=== PATIENT | female | born 1955 | race Hispanic/Latino ===

== ENCOUNTER 2017-11-06 16:33 | Emergency (ER) | payer OTHER ==
[~2017-11-06] VITALS: Ht 160 cm; Wt 95.7 kg
[2017-11-06] MEDS ORDERED: IPRATROPIUM BROMIDE 0.02% 2.5 ML NEB NEB STA (16:42)
[2017-11-06] MEDS ORDERED: ALBUTEROL SULF 0.083% NEB SOLN 3 ML NEB NEB STA (16:42)
[2017-11-06] MEDS ORDERED: BENZONATATE100 MG PO (16:56)
[2017-11-06] MEDS ORDERED: ATORVASTATIN CA20 MG PO (16:56)
[2017-11-06] MEDS ORDERED: LISINOPRIL2.5 MG PO (16:56)
[2017-11-06] MEDS ORDERED: GLIMEPIRIDE2 MG PO (16:56)
[2017-11-06] MEDS ORDERED: CINNAMON500 MG PO (16:56)
[2017-11-06] MEDS ORDERED: AZITHROMYCIN250 MG PO (16:56)
[2017-11-06 17:12] LABS: INFLUENZAE A&B ANTIGEN (RAPID) NEGATIVE (NEGATIVE); STREPTOCOCCUS GRP A ANTIGEN NEGATIVE (NEGATIVE)
--- NOTE | 2017-11-06 17:28 | Diagnostic Imaging Report ---
PROCEDURE: Frontal and lateral views of the chest. COMPARISON: None. INDICATIONS: COUGH FINDINGS: Lines/tubes: None. Lungs: The lungs are well inflated. Likely atelectatic changes in the left lower lung secondary to diaphragmatic elevation. There is no evidence of consolidation or pulmonary edema. Pleura: There is no pleural effusion or pneumothorax. Heart and mediastinum: Cardiac silhouette is unremarkable. Pulmonary vasculature is normal. 12.4 x 9.3 x 15.9 cm well-circumscribed lucency projecting in the left lower hemithorax likely represents the gastric bubble and superimposed portion of the splenic flexure Bones: No acute bony abnormality. Mild degenerative changes in the thoracic spine. IMPRESSION: 1. likely atelectatic changes in the left lower lung secondary to diaphragmatic elevation. 2. Large well-circumscribed lucency projecting in the left lower hemithorax likely represents the gastric bubble and superimposed portion of the splenic flexure due to diaphragmatic elevation. A diaphragmatic hernia is much less likely. CT chest may be obtained for further evaluation, if clinically indicated. Jose Torres M.D. Dictated by: Jose Torres M.D. on 11/06/2017 at 17:27 Electronically approved by: Jose Torres M.D. on 11/06/2017 at 17:27
--- NOTE | 2017-11-06 18:56 | Diagnostic Imaging Report ---
PROCEDURE: CT CHEST WITHOUT CONTRAST CT scan of the chest WITHOUT intravenous contrast, using standard protocol. TECHNIQUE: The chest was scanned utilizing a multidetector helical scanner from the apex to the level of the adrenal glands. No IV contrast was administered per physician's request. Coronal and sagittal multiplanar reformations were obtained. COMPARISON: Patients [facility], , CHEST 2 VIEWS, 11/06/2017, 16:57. INDICATIONS: RULE OUT PNEUMONIA, abnormal cxr FINDINGS: Lines/tubes: None. Lungs and Airways: Moderate atelectatic changes in the left lower lobe and to a lesser degree, lingula, secondary to large eventration of the left hemidiaphragm (series 3 per image 23). Mild atelectatic changes in the posterior right lower lobe secondary to eventration of the right hemidiaphragm (series 3 per image 35 and coronal image 93).. No consolidation, nodules, or masses. Airways are clear, without endobronchial lesions. Pleura: No effusion, or pneumothorax. Heart and mediastinum: The thyroid gland is normal. The heart and pericardium are within normal limits. Atherosclerotic calcification of the aortic valves. Lymph nodes: No mediastina, hilar, or axillary adenopathy. Abdomen: Limited views of the upper abdomen show no abnormality within the visualized liver, spleen, pancreas. The right adrenal gland is unremarkable. The left adrenal gland is not imaged. Bones: No aggressive lytic lesion. Soft tissues are grossly unremarkable. IMPRESSION: 1. moderate atelectatic changes in the left lower lobe and to a lesser degree, lingula secondary to large eventration of the left hemidiaphragm. 2. Mild atelectatic changes in the posterior right lower lobe secondary to eventration of the posterior right hemidiaphragm. 3. No consolidation or effusion. Jose Torres M.D. Dictated by: Jose Torres M.D. on 11/06/2017 at 18:55 Electronically approved by: Jose Torres M.D. on 11/06/2017 at 18:55
[2017-11-06] MEDS ORDERED: SODIUM CHLORIDE 0.9% 500ML 500 ML IV ONE (19:45)
[2017-11-06 20:14] LABS: BASOPHILS # (AUTO) 0.1 (0.0-0.1); BASOPHILS % 0.5 % (0.0-1.0); EOSINOPHILS # (AUTO) 0.4 (0.0-0.4); EOSINOPHILS % 2.8 % (0.0-6.0); HEMATOCRIT 41.2 % (34.2-44.1); HEMOGLOBIN 12.9 g/dL (12.0-16.0); LYMPHOCYTES # (AUTO) 2.7 (1.0-3.2); LYMPHOCYTES % 20.6 % (18.0-39.1); MEAN CORPUSCULAR HEMOGLOBIN 27.6 pg (28-32); MEAN CORPUSCULAR HGB CONC 31.3 g/dL (31-35); MONOCYTES # (AUTO) 0.7 (0.2-0.8); MONOCYTES % 5.7 % (4.4-11.3); NEUTROPHILS # (AUTO) 9.1 (2.1-6.9); NEUTROPHILS % 70.2 % (38.7-80.0); PLATELET COUNT 254 x10e3/uL (140-360); RED BLOOD COUNT 4.68 x10e6/uL (3.6-5.1); RED CELL DISTRIBUTION WIDTH 13.7 % (11.7-14.4)
[2017-11-06 20:20] LABS: INR 1.07; PROTHROMBIN TIME 13.1 seconds (11.9-14.5)
[2017-11-06 20:21] LABS: PARTIAL THROMBOPLASTIN TIME 27.1 seconds (23.8-35.5)
[2017-11-06 20:31] LABS: ALANINE AMINOTRANSFERASE 10 IU/L (0-55); ALBUMIN 3.6 g/dL (3.5-5.0); ALBUMIN/GLOBULIN RATIO 0.8 (0.8-2.0); ALKALINE PHOSPHATASE 132 IU/L (40-150); ANION GAP 13.7 mmol/L (8-16); BLOOD UREA NITROGEN 15 mg/dL (7-26); BUN/CREATININE RATIO 18 (6-25); CALCIUM 8.7 mg/dL (8.4-10.2); CARBON DIOXIDE 28 mmol/L (22-29); CHLORIDE 103 mmol/L (98-107); CREATININE, SERUM 0.82 mg/dL (0.57-1.11); EST GLOMERULAR FILTRATION RATE > 60 ML/MIN (60-); GLUCOSE 193 mg/dL (74-118); POTASSIUM 3.7 mmol/L (3.5-5.1); SODIUM 141 mmol/L (136-145)
[2017-11-06 20:54] LABS: CREATINE KINASE 23 IU/L (29-168)
[2017-11-06 21:13] VITALS: BP 102/49
== END 2017-11-06 21:15 | disposition home or self-care (01) ==
LOC: ER 16:33
DX: R05 Cough (principal); J40 Bronchitis, not specified as acute or chronic
CPT/HCPCS: 36415; 71046; 71250; 80053; 82550; 82553; 83518; 83735; 83880; 84484; 85025; 85379; 85610; 85730; 87070; 87400; 93005; 94640; 96360; 99284; J7040

== ENCOUNTER 2017-11-26 13:32 | Emergency (ER) | payer OTHER ==
[~2017-11-26] VITALS: Ht 157.5 cm; Wt 95.7 kg
[~2017-11-26 13:32] MED LIST: ATORVASTATIN CA20 MG PO; AZITHROMYCIN250 MG PO; BENZONATATE100 MG PO; CINNAMON500 MG PO; GLIMEPIRIDE2 MG PO; LISINOPRIL2.5 MG PO
--- OUTSIDE RECORDS SUMMARY | 2017-11-26 13:35 | XMS REPORT | Continuity of Care Document ---
Author Author [facility] Organization [facility] Address [address] [place] [address] Phone Unavailable Care Team Providers Care Special Education Supervisor Name Role Phone NO, PCP PCP Unavailable Insurance Providers Guarantor Johana Timmons Address [address] [place] [address] Email [email or web address] Payer [address] Policy Number [id number] Subscriber's Name TimmonsJohana cardenas Milli Relationship 18 Self / Same As Patient Group Number [id number] Group Name [employer] Effective Date 17 Advance Directives Directive Response Recorded Date/Time Does the patient have an advance directive? No 11/06/17 5:30pm If yes, is advance directive on file with [facility]? No 11/06/17 5:30pm If not on file with [facility] will patient provide a copy? No 11/06/17 5:30pm Do you have a Directive to Physician? No 11/06/17 5:30pm Do you have a Medical Power of Compliance Monitor? No 11/06/17 5:30pm Do you have an out of hospital Do Not Resuscitate Order? No 11/06/17 5:30pm Do you have any special needs we should be aware of? No 11/06/17 5:30pm Do you have a support person here with you today? Yes 11/06/17 5:30pm Did patient receive Notice of Privacy Practices? Yes 11/06/17 5:30pm Did patient receive patient rights and responsibilities? Yes 11/06/17 5:30pm Problems No problem information available. Medications Current Home Medications Medication Dose Units Route Directions Days Qty Instructions Start Date Atorvastatin Calcium 20 Mg Tablet 20 Mg Oral Bedtime 30 Tab Azithromycin (Z-Desmond) 250 Mg Tablet 250 Mg Oral Use As Directed 1 Udpkt Z-Pack Benzonatate 100 Mg Capsule 100 Mg Oral Three Times A Day as needed for Cough Cinnamon Bark (Cinnamon) 500 Mg Capsule 2 Cap Oral Daily Glimepiride 2 Mg Tablet 4 Mg Oral Daily Lisinopril 2.5 Mg Tablet 2.5 Mg Oral Daily 30 Tab Social History Smoking Status Start Date Stop Date Never Smoker Hospital Discharge Instructions No hospital discharge instruction information available. Plan of Care Discharge Date 11/06/17 9:15pm Disposition HOME, SELF-CARE Condition at Discharge Stable Instructions/Education Provided Bronchitis (Acute) - Adult Forms Provided Work/School Excuse Prescriptions See Medication Section Referrals SANDY CHAVEZ MD Address: [address] [place] [id number] Additional Instructions/Education 1. increase oral fluids 2. tylenol and motrin 3. return to ed as needed 4. follow up with your doctor in 1-2 days without fail Functional Status No functional status information available. Allergies, Adverse Reactions, Alerts No known allergies. Immunizations No immunization information available. Vital Signs Acute Vital Signs Vital Response Date/Time Temperature (Fahrenheit) 98.1 degrees F (97.6 - 99.5) 11/06/2017 9:13pm Pulse Pulse Rate (adult) 108 bpm (60 - 90) 11/06/2017 9:13pm Respiratory Rate 18 bpm (12 - 24) 11/06/2017 9:13pm Blood Pressure 102/49 mm Hg 11/06/2017 9:13pm Height 5 ft 3 in 11/06/2017 4:46pm Weight 211 lb 11/06/2017 4:46pm Body Mass Index 37.4 kg/m^2 11/06/2017 4:46pm Results Laboratory Results Test Name Result Units Flags Reference Collection Date/Time Result Date/ Time Comments White Blood Count 12.99 x10e3/uL H 4.8-10.8 11/06/2017 7:53pm 2017 8:16pm Red Blood Count 4.68 x10e6/uL 3.6-5.1 11/06/2017 7:53pm 11/06/2017 8: 16pm Hemoglobin 12.9 g/dL 12.0-16.0 11/06/2017 7:53pm 11/06/2017 8:16pm Hematocrit 41.2 % 34.2-44.1 11/06/2017 7:53pm 11/06/2017 8:16pm Mean Corpuscular Volume 88.0 fL 81-99 11/06/2017 7:53pm 11/06/2017 8: 16pm Mean Corpuscular Hemoglobin 27.6 pg L 28-32 11/06/2017 7:53pm 2017 8:16pm Mean Corpuscular Hemoglobin Concent 31.3 g/dL 31-35 11/06/2017 7:53pm 11/06/2017 8:16pm Red Cell Distribution Width 13.7 % 11.7-14.4 11/06/2017 7:53pm 2017 8:16pm Platelet Count 254 x10e3/uL 140-360 11/06/2017 7:53pm 11/06/2017 8: 16pm Neutrophils (%) (Auto) 70.2 % 38.7-80.0 11/06/2017 7:53pm 11/06/2017 8: 16pm Lymphocytes (%) (Auto) 20.6 % 18.0-39.1 11/06/2017 7:53pm 11/06/2017 8: 16pm Monocytes (%) (Auto) 5.7 % 4.4-11.3 11/06/2017 7:53pm 11/06/2017 8: 16pm Eosinophils (%) (Auto) 2.8 % 0.0-6.0 11/06/2017 7:53pm 11/06/2017 8: 16pm Basophils (%) (Auto) 0.5 % 0.0-1.0 11/06/2017 7:53pm 11/06/2017 8:16pm IM GRANULOCYTES % 0.2 % 0.0-1.0 11/06/2017 7:pm 11/06/2017 8:16pm Neutrophils # (Auto) 9.1 H 2.1-6.9 11/06/2017 7:53pm 11/06/2017 8: 16pm Lymphocytes # (Auto) 2.7 1.0-3.2 11/06/2017 7:53pm 11/06/2017 8:16pm Monocytes # (Auto) 0.7 0.2-0.8 11/06/2017 7:53pm 11/06/2017 8:16pm Eosinophils # (Auto) 0.4 0.0-0.4 11/06/2017 7:53pm 11/06/2017 8:16pm Basophils # (Auto) 0.1 0.0-0.1 11/06/2017 7:53pm 11/06/2017 8:16pm Absolute Immature Granulocyte (auto 0.03 x10e3/uL 0-0.1 11/06/2017 7: 53pm 11/06/2017 8:16pm Prothrombin Time 13.1 seconds 11.9-14.5 11/06/2017 7:53pm 11/06/2017 8: 21pm Prothromb Time International Ratio 1.07 11/06/2017 7:53pm 2017 8:21pm Oral Anticoagulant Therapy INR Values: 1. Low Intensity Therapy 1.5 - 2.0 2. Moderate Intensity Therapy 2.0 - 3.0 3. High Intensity Therapy(1) 2.5 - 3.5 4. High Intensity Therapy(2) 3.0 - 4.0 5. Panic Value INR > 5.0 Activated Partial Thromboplast Time 27.1 seconds 23.8-35.5 11/06/2017 7: 53pm 11/06/2017 8:21pm D-Dimer Quantitative (PE/DVT) 0.30 ug/mLFEU 0.00-0.45 11/06/2017 7:53pm 11/06/2017 8:30pm As with all in vitro diagnostic tests, the test results should be interpreted by the physician in conjunction with clinical findings and other test results. Test results are reported in NEW D-dimer units(ug/mLFEU). Sodium Level 141 mmol/L 136-145 11/06/2017 7:53pm 11/06/2017 8:36pm Potassium Level 3.7 mmol/L 3.5-5.1 11/06/2017 7:53pm 11/06/2017 8:36pm Chloride Level 103 mmol/L 98-107 11/06/2017 7:53pm 11/06/2017 8:36pm Influenza Virus Types A,B Antigen NEGATIVE NEGATIVE 11/06/2017 4:45pm 11/06/2017 5:12pm Carbon Dioxide Level 28 mmol/L 22-11/06/2017 7:53pm 11/06/2017 8: 36pm Anion Gap 13.7 mmol/L 8-16 11/06/2017 7:53pm 11/06/2017 8:36pm Blood Urea Nitrogen 15 mg/dL 7-11/06/2017 7:53pm 11/06/2017 8:36pm Creatinine 0.82 mg/dL 0.57-1.11 11/06/2017 7:53pm 11/06/2017 8:36pm BUN/Creatinine Ratio 18 6-11/06/2017 7:53pm 11/06/2017 8:36pm Estimat Glomerular Filtration Rate > 60 ML/MIN 60- 11/06/2017 7:53pm 8:36pm Ranges were taken from the National Kidney Disease Education Program and the National Kidney Foundation literature. Reference ranges: 60 or greater: Normal 16-59 (for 3 consecutive months): Chronic kidney disease 15 or less: Kidney failure Glucose Level 193 mg/dL H 74-118 11/06/2017 7:53pm 11/06/2017 8:36pm Calcium Level 8.7 mg/dL 8.4-10.2 11/06/2017 7:53pm 11/06/2017 8:36pm Magnesium Level 1.7 MG/DL 1.3-2.1 11/06/2017 7:53pm 11/06/2017 8:29pm Total Bilirubin 0.5 mg/dL 0.2-1.2 11/06/2017 7:53pm 11/06/2017 8:36pm Aspartate Amino Transf (AST/SGOT) 10 IU/L 5-34 11/06/2017 7:53pm 2017 8:36pm Alanine Aminotransferase (ALT/SGPT) 10 IU/L 0-55 11/06/2017 7:53pm 8:36pm Total Protein 8.1 g/dL 6.5-8.1 11/06/2017 7:53pm 11/06/2017 8:36pm Albumin 3.6 g/dL 3.5-5.0 11/06/2017 7:53pm 11/06/2017 8:36pm Globulin 4.5 g/dL H 2.3-3.5 11/06/2017 7:53pm 11/06/2017 8:36pm Albumin/Globulin Ratio 0.8 0.8-2.0 11/06/2017 7:53pm 11/06/2017 8: 36pm Alkaline Phosphatase 132 IU/L 40-150 11/06/2017 7:53pm 11/06/2017 8: 36pm B-Type Natriuretic Peptide < 10.0 pg/mL 0-100 11/06/2017 7:53pm 2017 8:38pm Creatine Kinase 23 IU/L L 29-168 11/06/2017 7:53pm 11/06/2017 9:02pm Creatine Kinase MB 0.60 ng/mL 0-5.0 11/06/2017 7:53pm 11/06/2017 8: 38pm Troponin I < 0.001 ng/mL 0-0.300 11/06/2017 7:53pm 11/06/2017 8:38pm Group A Streptococcus Screen NEGATIVE NEGATIVE 11/06/2017 4:45pm 5:12pm Procedures Procedure Status Date Provider(s) X-ray of chest, two views Active 11/06/17 KITTY CASTRO ROUTE [employer]IDER SUPERVISOR Computed tomography of chest without contrast Active 11/06/17 KITTY CASTRO [employer]TE [employer]ER SUPERVISOR Encounters Encounter Location Arrival/Admit Date Discharge/Depart Date Attending Provider Departed Emergency Room [facility] 11/06/17 4:33pm 9:15pm TAMIKO REID MD
--- OUTSIDE RECORDS SUMMARY | 2017-11-26 13:35 | XMS REPORT ---
[facility] Address Unknown Phone Unavailable Care Team Providers Care Cesspool Cleaner Name Role Phone JOHN DELATORRE Unavailable Unavailable Problems This patient has no known problems. Allergies, Adverse Reactions, Alerts This patient has no known allergies or adverse reactions. Medications This patient has no known medications. Encounters Start Date/Time End Date/Time Encounter Type Admission Type Attending [facility] Care Department Encounter ID 2018-01-02 00:00:00 2018-01-02 00:00:00 Outpatient [facility] [id number] 2017-11-01 16:29:02 2017-11-01 16:29:02 Outpatient [facility] [id number] 2017-10-31 00:00:00 2017-10-31 00:00:00 Outpatient [facility] [id number] 2017-10-30 07:39:45 2017-10-30 07:39:45 Outpatient [facility] [id number] 2017-10-23 14:46:43 2017-10-23 14:46:43 Outpatient [facility] [id number] 2017-10-16 14:21:33 2017-10-16 14:21:33 Outpatient [facility] [id number] 2017-10-03 00:00:00 2017-10-03 00:00:00 Outpatient [facility] [id number] 2017-09-20 10:23:48 2017-09-20 10:23:48 Outpatient [facility] [id number] 2017-09-18 09:04:33 2017-09-18 09:04:33 Outpatient [facility] [id number] 2017-09-18 08:36:50 2017-09-18 08:36:50 Outpatient [facility] [id number] 2017-09-18 00:00:00 2017-09-18 00:00:00 Outpatient [facility] [id number] 2017-09-17 15:45:23 2017-09-17 15:45:23 Outpatient [facility] [id number] 2017-09-12 00:00:00 2017-09-12 00:00:00 Outpatient [facility] [id number] 2017-09-11 00:00:00 2017-09-11 00:00:00 Outpatient [facility] [id number] 2017-09-11 00:00:00 2017-09-11 00:00:00 Outpatient [facility] [id number] 2017-09-05 13:10:24 2017-09-05 13:10:24 Outpatient [facility] [id number] 2017-09-05 12:06:21 2017-09-05 12:06:21 Outpatient [facility] [id number] 2017-09-05 11:36:24 2017-09-05 11:36:24 Outpatient [facility] [id number] 2017-09-05 09:11:27 2017-09-05 09:11:27 Outpatient [facility] [id number] 2017-08-29 09:12:09 2017-08-29 09:12:09 Outpatient [facility] [id number] 2017-08-29 00:00:00 2017-08-29 00:00:00 Outpatient [facility] [id number] 2017-08-13 10:51:16 2017-08-13 10:51:16 Outpatient [facility] [id number] 2017-08-13 10:25:52 2017-08-13 10:25:52 Outpatient [facility] [id number] 2017-08-10 08:28:32 2017-08-10 08:28:32 Outpatient [facility] [id number] 2017-08-10 00:00:00 2017-08-10 00:00:00 Outpatient [facility] [id number] 2017-08-09 08:45:36 2017-08-09 08:45:36 Outpatient [facility] [id number] 2017-08-09 00:00:00 2017-08-09 00:00:00 Outpatient [facility] [id number] 2017-08-09 00:00:00 2017-08-09 00:00:00 Outpatient [facility] [id number] 2017-08-07 14:54:26 2017-08-07 14:54:26 Outpatient [facility] [id number] 2017-08-01 07:44:27 2017-08-01 07:44:27 Outpatient [facility] [id number] 2017-07-31 10:14:10 2017-07-31 10:14:10 Outpatient [facility] [id number] 2017-07-31 08:00:18 2017-07-31 08:00:18 Outpatient [facility] [id number] 2017-07-26 14:20:17 2017-07-26 14:20:17 Outpatient [facility] [id number] 2017-07-26 10:25:11 2017-07-26 10:25:11 Outpatient [facility] [id number] 2017-07-12 14:11:09 2017-07-12 14:11:09 Outpatient [facility] [id number] 2017-06-26 00:00:00 2017-06-26 00:00:00 Outpatient [facility] [id number] 2017-06-25 00:00:00 2017-06-25 00:00:00 Outpatient [facility] [id number] 2017-06-21 09:08:31 2017-06-21 09:08:31 Outpatient [facility] [id number] 2017-06-20 10:07:23 2017-06-20 10:07:23 Outpatient [facility] [id number] 2017-06-20 00:00:00 2017-06-20 00:00:00 Outpatient [facility] [id number] 2017-06-13 08:57:56 2017-06-13 08:57:56 Outpatient [facility] [id number] 2017-06-12 00:00:00 2017-06-12 00:00:00 Outpatient [facility] [id number] 2017-06-11 00:00:00 2017-06-11 00:00:00 Outpatient [facility] [id number] 2017-05-17 00:00:00 2017-05-17 00:00:00 Outpatient [facility] [id number] 2017-05-08 09:38:24 2017-05-08 09:38:24 Outpatient [facility] [id number] 2017-05-04 00:00:00 2017-05-04 00:00:00 Outpatient [facility] [id number] 2017-05-01 00:00:00 2017-05-01 00:00:00 Outpatient [facility] [id number] 2017-04-25 00:00:00 2017-04-25 00:00:00 Outpatient [facility] [id number] 2017-04-17 13:42:44 2017-04-17 13:42:44 Outpatient [facility] [id number] 2017-03-25 15:24:54 2017-03-25 15:24:54 Emergency [facility] [id number] 2017-03-16 00:00:00 2017-03-16 00:00:00 Outpatient [facility] [id number] 2017-03-15 17:01:30 2017-03-15 17:01:30 Outpatient [facility] [id number] 2017-03-09 09:44:30 2017-03-09 09:44:30 Outpatient [facility] [id number] 2017-03-09 07:58:27 2017-03-09 07:58:27 Outpatient [facility] [id number] 2017-03-08 14:35:21 2017-03-08 14:35:21 Outpatient [facility] [id number] 2017-03-06 00:00:00 2017-03-06 00:00:00 Outpatient [facility] [id number] 2017-02-22 11:08:43 2017-02-22 11:08:43 Outpatient [facility] [id number] 2017-02-22 09:16:58 2017-02-22 09:16:58 Outpatient [facility] [id number] 2016-06-09 14:13:25 2016-06-09 14:13:25 Outpatient [facility] [id number] 2016-06-09 14:08:46 2016-06-09 14:08:46 Outpatient [facility] [id number] Results Test Description Test Time Test Comments Text Results Atomic Results Result Comments CT CHEST [place] [address] Patient Name: SARI VILLA MR #: [id number] : 1955 Age/Sex: 62/F Req #: [id number] Adm Physician: Ordered by: KITTY CASTRO REPAIRER [employer] Report #: [id number] Location: ER Room/Bed: Procedure: [id number] CT/CT CHEST WO Exam Date: Exam Time: REPORT STATUS: Signed PROCEDURE: CT CHEST WITHOUT CONTRAST CT scan of the chest WITHOUT intravenous contrast, using standard protocol. TECHNIQUE: The chest was scanned utilizing a multidetector helical scanner from the apex to the level of the adrenal glands. No IV contrast was administered per physician's request. Coronal and sagittal multiplanar reformations were obtained. COMPARISON: Patients [facility], , CHEST 2 VIEWS, 2017, 16:57. INDICATIONS: RULE OUT PNEUMONIA, abnormal cxr FINDINGS: Lines/tubes: None. Lungs and Airways: Moderate atelectatic changes in the left lower lobe and to a lesser degree, lingula, secondary to large eventration of the left hemidiaphragm (series 3 per image 23). Mild atelectatic changes in the posterior right lower lobe secondary to eventration of the right hemidiaphragm (series 3 per image 35 and coronal image 93).. No consolidation, nodules, or masses. Airways are clear, without endobronchial lesions. Pleura: No effusion, or pneumothorax. Heart and mediastinum: The thyroid gland is normal. The heart and pericardium are within normal limits. Atherosclerotic calcification of the aortic valves. Lymph nodes: No mediastina, hilar, or axillary adenopathy. Abdomen: Limited views of the upper abdomen show no abnormality within the visualized liver, spleen, pancreas. The right adrenal gland is unremarkable. The left adrenal gland is not imaged. Bones: No aggressive lytic lesion. Soft tissues are grossly unremarkable. IMPRESSION: 1. moderate atelectatic changes in the left lower lobe and to a lesser degree, lingula secondary to large eventration of the left hemidiaphragm. 2. Mild atelectatic changes in the posterior right lower lobe secondary to eventration of the posterior right hemidiaphragm. 3. No consolidation or effusion. Rafia Torres M.D. Dictated by: Rafia Torres M.D. on 11/06/2017 at 18:55 Electronically approved by: Rafia Torres M.D. on 11/06/2017 at 18:55 Dictated By: RAFIA TORRES MD [id number] Transcribed By: DANII on 03/13/18 1855 COPY TO: KITTY CASTRO [employer]PA[employer] CHEST 2 VIEWS [place] [address] [place] [address] Patient Name: SARI VILLA MR #: [id number] : 1955 Age/Sex: 62/F Req #: [id number] Adm Physician: Ordered by: KITTY CASTRO REPAIRER [employer] Report #: [id number] Location: ER Room/Bed: Procedure: [id number] DX/CHEST 2 VIEWS Exam Date: 11/06/17 Exam Time: 1650 REPORT STATUS: Signed PROCEDURE: Frontal and lateral views of the chest. COMPARISON: None. INDICATIONS: COUGH FINDINGS : Lines/tubes: None. Lungs: The lungs are well inflated. Likely atelectatic changes in the left lower lung secondary to diaphragmatic elevation. There is no evidence of consolidation or pulmonary edema. Pleura: There is no pleural effusion or pneumothorax. Heart and mediastinum: Cardiac silhouette is unremarkable. Pulmonary vasculature is normal. 12.4 x 9.3 x 15.9 cm well-circumscribed lucency projecting in the left lower hemithorax likely represents the gastric bubble and superimposed portion of the splenic flexure Bones: No acute bony abnormality. Mild degenerative changes in the thoracic spine. IMPRESSION: 1. likely atelectatic changes in the left lower lung secondary to diaphragmatic elevation. 2. Large well-circumscribed lucency projecting in the left lower hemithorax likely represents the gastric bubble and superimposed portion of the splenic flexure due to diaphragmatic elevation. A diaphragmatic hernia is much less likely. CT chest may be obtained for further evaluation, if clinically indicated. Rafia Torres M.D. Dictated by: Rafia Torres M.D. on 11/06/2017 at 17:27 Electronically approved by : Rafia Torres M.D. on 11/06/2017 at 17:27 Dictated By: RAFIA TORRES MD 26 Transcribed By: DANII on 11/06/171726 COPY TO: KITTY CASTRO NP
== END 2017-11-26 18:33 | disposition home or self-care (01) ==
LOC: ER 13:42
DX: L23.9 Allergic contact dermatitis, unspecified cause (principal)
CPT/HCPCS: 99282

== ENCOUNTER 2018-02-21 20:12 | Emergency (ER) | payer OTHER ==
[~2018-02-21] VITALS: Ht 157.5 cm; Wt 95.7 kg
[2018-02-21] MEDS ORDERED: ONDANSETRON HCL INJ 2 MG/ML VIAL IV STA (20:41)
[2018-02-21] MEDS ORDERED: FENTANYL CITRATE/PF 100MCG/2 ML INJ IV ONE (20:45)
[2018-02-21] MEDS ORDERED: SODIUM CHLORIDE 0.9% 1000ML 1,000 ML IV ONE (20:45)
[2018-02-21 22:21] VITALS: BP 138/84
== END 2018-02-21 22:23 | disposition home or self-care (01) ==
LOC: FSED 20:12
DX: R10.31 Right lower quadrant pain (principal); E11.9 Type 2 diabetes mellitus without complications; N80.9 Endometriosis, unspecified
CPT/HCPCS: 74177; 80053; 81003; 85025; 96374; 96375; 99283; J2405; J7030

== ENCOUNTER 2018-02-23 21:48 | Emergency (ER) | payer OTHER ==
[~2018-02-23] VITALS: Ht 157.5 cm; Wt 95.7 kg
[2018-02-23] MEDS ORDERED: HYDROCODONE/APAP 5MG-325MG TAB PO ONE (22:15)
[2018-02-23] MEDS ORDERED: CEFTRIAXONE SOD 1 GM VIAL IM ONE (22:15)
== END 2018-02-23 22:45 | disposition home or self-care (01) ==
LOC: FSED 21:48
DX: K04.7 Periapical abscess without sinus (principal)
CPT/HCPCS: 99282; J0696